=== PATIENT | female | born 1990 | race Caucasian/White ===

== ENCOUNTER 2024-09-16 10:09 | Emergency (ER) | payer MEDICAID ==
[~2024-09-16] VITALS: Ht 152.4 cm; Wt 54.0 kg
[2024-09-16 10:14] VITALS: BP 142/92; PULSE 82; TEMP 97.8; O2SAT 100
[2024-09-16] MEDS ORDERED: HYDR-3965 PO (12:43)
[2024-09-16 12:55] VITALS: RESP 18
== END 2024-09-16 12:56 | disposition home or self-care (01) ==
LOC: ER 10:10
DX: S62.660A Nondisplaced fracture of distal phalanx of right index finger, initial encounter for closed fracture (principal); Z88.1 Allergy status to other antibiotic agents; Z79.899 Other long term (current) drug therapy; X58.XXXA Exposure to other specified factors, initial encounter; Y93.89 Activity, other specified; Y92.89 Other specified places as the place of occurrence of the external cause; Y99.8 Other external cause status
CPT/HCPCS: 29130; 73110; 73130; 99284

== ENCOUNTER 2025-10-14 19:44 | Emergency (ER) | payer MEDICAID ==
[~2025-10-14] VITALS: Ht 152.4 cm; Wt 54.5 kg
[2025-10-14 19:49] VITALS: BP 143/80; PULSE 83; RESP 20; O2SAT 98
--- NOTE | 2025-10-14 20:01 | Physician Documentation ---
History of Present Illness ~ Chief Complaint: Facial Pain Stated Complaint: SINUS INFECTION Time Seen by MD: 19:55 HPI Is a very pleasant 35-year-old female that presents to the emergency department for evaluation of concern for sinus infection. Patient reports that she has had a child recently ill similar symptoms. Patient reports that she has a history significant for sinus infections and usually requires antibiotics to clear them up. Patient denies fevers chills nausea vomiting diarrhea at this time. She has been using saline rinses but reports that they are starting to hurt her ears. Patient denies any other symptoms at this time. Tetanus Within 5 Years: Yes Medication Reconciliation Allergies: Coded Allergies: ceftriaxone (Verified Allergy, Unknown, 09/16/24) Review of Systems ROS As stated above in the HPI, otherwise all systems are reviewed and negative. Physical Exam Vital Signs: Temperature: 98.0, Heart Rate: 83, Respiratory Rate: 20, BP: 143/80, Pulse Oximetry: 98, Weight: 54.540 Oxygen Flow Rate: 0 Physical Exam VITALS: Reviewed and as above. GENERAL: Alert, no apparent distress. HEENT: Normocephalic, atraumatic, PERRL, EOMI, dry mucosa, no erythema, maxillary sinus pressure discomfort with palpation on examination. RESPIRATORY: Lungs clear, normal breath sounds, no respiratory distress. CHEST: No accessory muscle use, no retractions CV: Regular rate, rhythm, no edema, no murmur, No: JVD GI: Soft, non-tender, bowels sounds present, no rebound, guarding, or rigidity BACK: No CVA tenderness, or swelling MUSCULOSKELETAL No deformities, no edema SKIN: Warm and dry, no rash NEURO: Oriented x4, No motor or sensory deficit PSYCH: Normal mood and affect, no agitation Progress Results/Orders Results/Orders Vital Signs 10/14/25 19:49 Temp 98.0 Pulse 83 Resp 20 B/P (MAP) 143/80 Pulse Ox 98 O2 Flow Rate 0 Medical Decision Making Additional information obtaine: other Findings Chief Complaint: Suspected sinus infection History of Present Illness: 35-year-old female presents to the emergency department with symptoms consistent with acute rhinosinusitis. Patient reports recent exposure to a child with similar symptoms and has a history of recurrent sinus infections typically requiring antibiotics. Currently denies fever, chills, nausea, vomiting, or diarrhea. Patient has been using saline rinses, which are now causing ear discomfort. Medical Decision-Making: Number of Diagnoses/Management Options: Moderate complexity Acute bacterial rhinosinusitis (ABRS) suspected based on clinical presentation and history of recurrent infections requiring antibiotics Amount/Complexity of Data: Limited Clinical diagnosis based on history and physical examination No imaging or laboratory studies obtained Risk of Complications: Low No evidence of severe infection (temperature <39C/102F) No signs of suppurative complications or systemic toxicity Uncomplicated presentation Clinical Reasoning: The diagnosis of acute bacterial rhinosinusitis was considered based on the patient's symptom pattern and history. Current guidelines support both watchful waiting and antibiotic therapy as initial management strategies for uncomplicated ABRS. The [place] [employer] recommends that antibiotic therapy may be considered if symptoms worsen or fail to improve after 3-5 days of watchful waiting, or if symptoms persist beyond 14 days. Given the patient's history of recurrent sinus infections typically requiring antibiotics, the decision was made to initiate antibiotic therapy rather than pursue watchful waiting. Antibiotic Selection: Azithromycin (Z-Edmund) was prescribed for this patient. It should be noted that current evidence-based guidelines recommend amoxicillin, with or without clavulanate, as first-line antibiotic therapy for ABRS. The [place] [employer] specifically states that macrolide antibiotics, including azithromycin, are not recommended for initial therapy of ABRS. Amoxicillin (500 mg three times daily or 875 mg twice daily) is preferred for previously healthy adults with mild to moderate symptoms. Azithromycin is FDA-approved for acute bacterial sinusitis at a dosage of 500 mg once daily for 3 days. Clinical trials have demonstrated cure rates of 88% at Day 10 for azithromycin compared to 85% for amoxicillin-clavulanate. However, the deviation from guideline-recommended first-line therapy should be documented. Adjunctive Therapy: Patient has been using saline rinses, which are supported by guidelines as adjunctive therapy to alleviate symptoms. The ear discomfort associated with saline rinses should be addressed with patient education regarding proper technique. Disposition: Patient discharged home with first dose of azithromycin administered in the emergency department. Patient instructed to complete the full course of antibiotics and to return if symptoms worsen, fail to improve within 7 days, or if concerning features develop (high fever, severe headache, visual changes, facial swelling). Overall Medical Decision-Making Complexity: Moderate Differential Dx:Considerations: Include: Abrasion, Contusion, Cerebral contusion, Cervical spine injury, Closed head injury, Encephalopathy, Foreign body, Fracture, facial, Intoxication-alcohol, Intoxication-other drug, Laceration, Other Departure Disposition: 01 HOME / SELF CARE / HOMELESS Impression: Primary Impression: Sinus infection Condition: Stable Discharge Instructions: Sinus Infection, Adult Additional Instructions: Your Diagnosis You were diagnosed with a sinus infection (also called sinusitis). This is a bacterial infection in the air-filled spaces around your nose and eyes. Your Medication: Azithromycin (Z-Edmund) You received your first dose of azithromycin in the emergency department today. You have been given a prescription to complete the rest of your treatment at home. How to Take Your Medication: Take 500 mg once daily for the next 2 days (you already received your first dose today) You can take azithromycin with or without food Take your medication at the same time each day Do not take antacids (like Tums, Maalox, or Mylanta) at the same time as azithromycin - wait at least 2 hours between them Important: Finish All Your Medication Even if you start feeling better before finishing all the pills, you must take all the medication as prescribed. Stopping early can: Make your infection come back Make bacteria resistant to antibiotics in the future What to Expect Most people start feeling better within a few days of starting antibiotics It may take up to 7-10 days to feel completely better Common side effects include nausea, diarrhea, stomach pain, and headache - these usually go away when you finish the antibiotic Continue Your Home Care Keep using saline rinses to help clear your sinuses - these are helpful for symptom relief If the saline rinses are hurting your ears, you may be using too much pressure. Try rinsing more gently or ask your pharmacist for advice on proper technique Get plenty of rest Drink lots of fluids Use a humidifier if it helps you feel better When to Seek Medical Attention Call your doctor or return to the emergency department if you develop: Fever over 102F (39C) Severe headache that doesn't improve with [id number] pain medication Vision changes or eye pain Swelling or redness around your eyes or face Stiff neck Confusion or difficulty thinking clearly Symptoms that get worse instead of better after 2-3 days of antibiotics Symptoms that don't improve after 7 days of antibiotics Signs of an allergic reaction including rash, hives, difficulty breathing, or swelling of your face, lips, or tongue - if this happens, stop taking azithromycin immediately and seek emergency care Follow-Up Care If your symptoms are not improving after 7 days, contact your primary care doctor Consider following up with your primary care doctor if you continue to have frequent sinus infections Questions? If you have any questions about your medication or your condition, contact your primary care doctor or pharmacist. Referrals: NO PRIMARY CARE PROVIDER (PCP) Prescriptions Azithromycin (Azithromycin) 250 Mg Tablet 1 TAB PO UD for 5 Days, #6 TAB 2 the first day followed by 1 for days 2-5 Prov: JENISE VALDEZ 10/14/25 Education Educated: Patient Educated regarding: diagnosis, treatment, need for follow up JENISE VALDEZ Oct 14, 2025 20:01
[2025-10-14] MEDS ORDERED: AZIT250T83 PO (20:02)
[2025-10-14 20:18] VITALS: TEMP 98
== END 2025-10-14 20:20 | disposition home or self-care (01) ==
LOC: ER 19:44
DX: J32.9 Chronic sinusitis, unspecified (principal); Z88.1 Allergy status to other antibiotic agents
CPT/HCPCS: 99283